=== PATIENT | male | born 1940 | race Caucasian/White ===

== ENCOUNTER → 2021-05-10 | Outpatient (CLI) | payer MEDICARE ==
[~2021-05-10] MED LIST: ALPR0.5T93 PO; APIX5TAB PO; CARV-39 PO; CHOL10003 PO; DICL100G25 TP; HYDR-3248 PO; LOSA50TA14 PO; LUTE20TA PO; MELO15TA24 PO; OMEP40CA8 PO; SIMV5TAB14 PO; TRAM50TA2 PO; TRAZ50TA66 PO; UBID60CA4 PO; VIT1CAPS42 PO; VITAMIN B12 PO; ZINC220T2 PO
[2021-05-10 14:24] LABS: ALBUMIN 3.6 g/dL (3.4-5.0); ANION GAP 2 mmol/L (5-15); CALCIUM 8.8 mg/dL (8.5-10.1); CHLORIDE 108 mmol/L (98-107); CREATININE 0.97 mg/dL (0.7-1.3)
[2021-05-10 14:27] LABS: ALANINE AMINOTRANSFERASE 23 U/L (12-78); ALKALINE PHOSPHATASE 74 U/L (45-117); BILIRUBIN,TOTAL 0.3 mg/dL (0.2-1.0); TOTAL PROTEIN 6.9 g/dL (6.4-8.2)
== END | disposition home or self-care (01) ==
LOC: STAR 12:54
PROVIDERS: ATTEND Orthopaedic Surgery
DX: Z01.818 Encounter for other preprocedural examination (principal); G56.20 Lesion of ulnar nerve, unspecified upper limb; G56.01 Carpal tunnel syndrome, right upper limb
CPT/HCPCS: 36415; 80053; 93005

== ENCOUNTER 2021-05-16 08:14 | Day surgery (SDC) | payer MEDICARE ==
[~2021-05-16] VITALS: Ht 182.9 cm; Wt 71.1 kg
[2021-05-16] MEDS ORDERED: CHLORHEXIDINE 15 ML UDC PO ONE (08:45)
[2021-05-16 08:58] VITALS: BP 132/76
[2021-05-16] MEDS ORDERED: LIDOCAINE-MPF 1%, 2ML INFIL ONE (09:00)
[2021-05-16] MEDS ORDERED: LACTATED RINGERS 1,000 ML IV SCH (09:00)
[2021-05-16] MEDS ORDERED: LIDOCAINE-MPF 2% ,5ML ONE (09:10)
[2021-05-16] MEDS ORDERED: BUPIVACAINE/PF 0.5% ONE (09:10)
[2021-05-16] MEDS ORDERED: EPINEPHRINE 1 MG/ML, 1ML ONE (09:10)
[2021-05-16] MEDS ORDERED: PROPOFOL 50 ML ONE (09:47)
[2021-05-16] MEDS ORDERED: PROPOFOL 10 MG/ML, 20ML ONE (09:47)
[2021-05-16] MEDS ORDERED: FENTANYL PF 250 MCG/5ML ONE (09:47)
[2021-05-16] MEDS ORDERED: ONDANSETRON 2MG/ML, 2ML ONE (09:59)
[2021-05-16] MEDS ORDERED: CEFAZOLIN 1,000 MG ONE ×2 (10:02)
[2021-05-16] MEDS ORDERED: LABETALOL 5MG/ML, 20ML IV PRN (10:30)
[2021-05-16] MEDS ORDERED: HYDROmorphone 1 MG/ML, 1ML INJ IVPush PRN (10:30)
[2021-05-16] MEDS ORDERED: DIAZEPAM 5 MG/ML, 2ML IVPush PRN (10:30)
[2021-05-16] MEDS ORDERED: EPHEDRINE 50 MG/ML, 1ML IVPush PRN (10:30)
[2021-05-16] MEDS ORDERED: FENTANYL PF 100 MCG/2ML IV PRN (10:30)
[2021-05-16] MEDS ORDERED: MEPERIDINE/PF 25MG/0.5ML IVPush PRN (10:30)
[2021-05-16] MEDS ORDERED: EPHEDRINE 50 MG/ML, 1ML IM PRN (10:30)
[2021-05-16] MEDS ORDERED: ACETAMINOPHEN 325 MG TABLET PO PRN (10:30)
[2021-05-16] MEDS ORDERED: PROMETHAZINE 25 MG/ML, 1ML IVPush PRN (10:30)
[2021-05-16] MEDS ORDERED: DIPHENHYDRAMINE 50 MG/ML, 1ML IVPush PRN (10:30)
[2021-05-16] MEDS ORDERED: ONDANSETRON 2MG/ML, 2ML IVPush PRN (10:30)
== END 2021-05-16 12:45 | disposition home or self-care (01) ==
LOC: OUT 08:14
PROVIDERS: ATTEND Orthopaedic Surgery
DX: G56.03 Carpal tunnel syndrome, bilateral upper limbs (principal); G56.21 Lesion of ulnar nerve, right upper limb; M65.331 Trigger finger, right middle finger; I11.0 Hypertensive heart disease with heart failure; I50.9 Heart failure, unspecified; E78.5 Hyperlipidemia, unspecified; F41.9 Anxiety disorder, unspecified; I48.91 Unspecified atrial fibrillation; M19.90 Unspecified osteoarthritis, unspecified site; Z79.01 Long term (current) use of anticoagulants; Z79.1 Long term (current) use of non-steroidal anti-inflammatories (NSAID); Z79.899 Other long term (current) drug therapy; Z88.5 Allergy status to narcotic agent
CPT/HCPCS: 26055; 64719; 64721; J0171; J0690; J2405; J2704; J3010; J7120